=== PATIENT | male | born 1975 | race Caucasian/White ===

== ENCOUNTER 2025-09-16 13:01 | Inpatient (IN) | payer SELFPAY ==
[~2025-09-16] VITALS: Ht 167.6 cm; Wt 73.0 kg
[2025-09-16 13:08] VITALS: O2SAT 98
[2025-09-16 13:52] LABS: BASOPHILS % 0.3 % (0.0-2.0); EOSINOPHILS % 1.0 % (0.0-5.0); HEMATOCRIT. 45.4 % (42.0-52.0); HEMOGLOBIN. 15.4 g/dL (14.0-18.0); LYMPHOCYTES % 18.3 % (20.0-50.0); MEAN PLATELET VOLUME 8.6 fl (7.4-10.4); MONOCYTES % 7.1 % (2.0-8.0); NEUTROPHILS % 73.3 % (40.0-76.0); PLATELET 291 x1000/uL (130-400); RED BLOOD CELL COUNT 5.24 mill/uL (4.7-6.1); RED CELL DISTRIBUTION WIDTH 13.9 % (11.6-14.6)
[2025-09-16 14:18] LABS: CREATININE 0.9 mg/dL (0.6-1.3); UREA NITROGEN BLOOD 9 mg/dL (9-23)
[2025-09-16 14:19] LABS: PROTEIN TOTAL 7.4 g/dL (6.0-8.3)
[2025-09-16 14:20] LABS: ASPARTATE AMINOTRANSFERASE 16 IU/L (<34); BILIRUBIN DIRECT 0.2 mg/dL (<=3.0); BILIRUBIN TOTAL 0.8 mg/dL (0.1-1.0)
[2025-09-16 15:39] LABS: CLARITY URINE CLEAR (CLEAR); COLOR URINE YELLOW (YELLOW); GLUCOSE URINE NEGATIVE (NEGATIVE); KETONES URINE NEGATIVE (NEGATIVE); LEUKOCYTE ESTERASE URINE NEGATIVE (NEGATIVE); NITRITE URINE NEGATIVE (NEGATIVE); OCCULT BLOOD URINE NEGATIVE (NEGATIVE); PH URINE 6.0 (4.5-8.0); PROTEIN URINE NEGATIVE (NEGATIVE); SPECIFIC GRAVITY URINE 1.008 (1.005-1.030); UROBILINOGEN URINE 1.0 E.U./dL (0.2-1.0)
[2025-09-16] MEDS: SODIUM CHLORIDE 0.9% 1,000 ML IV ONE ×2 (16:06→16:07)
[2025-09-16] MEDS ORDERED: ONDANSETRON HCL 4MG/2ML INJ IV PRN (17:30)
[2025-09-16] MEDS ORDERED: IPRATROPIUM/ALBUTEROL 0.5-3(2.5)MG/3ML NEB HHN PRN (17:30)
[2025-09-16] MEDS ORDERED: DOCUSATE SODIUM 100MG CAPSULE PO PRN (17:30)
[2025-09-16] MEDS ORDERED: ACETAMINOPHEN 325MG TABLET PO PRN ×2 (17:30)
[2025-09-16] MEDS: CLONIDINE 0.1MG TABLET PO PRN (19:05)
[2025-09-16] MEDS: TAMSULOSIN HCL 0.4MG SR CAPSULE PO SCH (19:06)
[2025-09-16 20:00] VITALS: BP 119/80; PULSE 78; RESP 17; TEMP 36.3; O2SAT 99
[2025-09-17] VITALS (7 sets, daily range): BP systolic 101–118; BP diastolic 57–84; PULSE 65–95; RESP 18; TEMP 36.1–36.3068; O2SAT 96–100
[2025-09-17 08:16] LABS: *AMPHETAMINES SCREEN URINE PRESUMPTIVE POSITIVE (NEGATIVE)
[2025-09-17 08:17] LABS: *BARBITURATES SCREEN URINE NEGATIVE (NEGATIVE); *BENZODIAZEPINES SCREEN URINE NEGATIVE (NEGATIVE); *COCAINE SCREEN URINE NEGATIVE (NEGATIVE); CANNABINOID URINE SCREEN PRESUMPTIVE POSITIVE (NEGATIVE); ECSTASY MDMA SCREEN URINE NEGATIVE (NEGATIVE); METHADONE URINE SCREEN NEGATIVE (NEGATIVE); OPIATES URINE SCREEN NEGATIVE (NEGATIVE); PHENCYCLIDINE URINE SCREEN NEGATIVE (NEGATIVE)
[2025-09-17 09:10] LABS: BASOPHILS % 0.2 % (0.0-2.0); EOSINOPHILS % 2.5 % (0.0-5.0); HEMATOCRIT. 42.3 % (42.0-52.0); HEMOGLOBIN. 14.4 g/dL (14.0-18.0); LYMPHOCYTES % 33.9 % (20.0-50.0); MEAN PLATELET VOLUME 8.9 fl (7.4-10.4); MONOCYTES % 6.3 % (2.0-8.0); NEUTROPHILS % 57.1 % (40.0-76.0); PLATELET 236 x1000/uL (130-400); RED BLOOD CELL COUNT 4.90 mill/uL (4.7-6.1); RED CELL DISTRIBUTION WIDTH 13.6 % (11.6-14.6)
[2025-09-17 09:30] LABS: CREATININE 0.9 mg/dL (0.6-1.3)
[2025-09-17] MEDS: PANTOPRAZOLE SODIUM 40 MG/VIAL IV SCH (09:30)
[2025-09-17 09:32] LABS: UREA NITROGEN BLOOD 11 mg/dL (9-23)
[2025-09-17 09:34] LABS: PHOSPHORUS 3.8 mg/dL (2.5-4.9)
[2025-09-17] MEDS ORDERED: TAMS-54 MT (11:55)
[2025-09-19 06:08] LABS: CHLAMYDIA TRACHOMATIS NAA Negative (Negative); NEISSERIA GONORRHOEAE NAA Negative (Negative)
== END 2025-09-17 17:20 | disposition home or self-care (01) | DRG 501 ==
LOC: ER 13:01 → 8EST 16:22 → EDBEDREQ 16:54 → EDBEDREQTM 16:54 → ENRESERV 17:11
PROVIDERS: ADMIT Internal Medicine; ATTEND Internal Medicine
DX: N40.1 Benign prostatic hyperplasia with lower urinary tract symptoms (principal); N13.8 Other obstructive and reflux uropathy; N43.3 Hydrocele, unspecified; Z79.899 Other long term (current) drug therapy
CPT/HCPCS: 36415; 74176; 76870; 80048; 80076; 80305; 81003; 83735; 84100; 85025; 87491; 87591; 93976; 99285; J2470; J7030